=== PATIENT | female | born 1990 | race Caucasian/White ===

== ENCOUNTER 2018-01-21 17:48 | Emergency (ER) | payer OTHER ==
[~2018-01-21] VITALS: Ht 149.9 cm; Wt 54.4 kg
[2018-01-21] MEDS ORDERED: ADDERALL 20 MG20 M1 PO (17:57)
[2018-01-21] MEDS ORDERED: GABAPENTIN 100100 MG PO (17:57)
[2018-01-21] MEDS ORDERED: INDOMETHACIN 5050 MG PO (17:59)
[2018-01-21] MEDS ORDERED: NAPROSYN500 MG PO (17:59)
[2018-01-21 18:49] LABS: ABSOLUTE BASOPHILS 0.1 thou/uL (0.0-0.2); ABSOLUTE EOSINOPHILS 0.1 thou/uL (0.0-0.7); ABSOLUTE LYMPHOCYTES 2.3 thou/uL (0.8-5.3); ABSOLUTE MONOCYTES 0.8 thou/uL (0.0-1.2); ABSOLUTE NEUTROPHILS 4.1 thou/uL (1.6-8.1); BASOPHILS 0.8 %; HEMATOCRIT 42.8 % (37.0-47.0); HEMOGLOBIN 14.3 gm/dL (12.0-15.0); LYMPHOCYTES 31.8 %; MCH 30.7 pg (26.0-34.0); MCHC 33.5 g/dL (28.0-37.0); MCV 91.8 fL (80.0-100.0); MONOCYTES 10.7 %; MPV 8.9 fl. (7.2-11.1); NUCLEATED RBCS 0 /100WBC; PLATELET COUNT* 292 thou/uL (150-400); POLYS 55.7 %; RBC 4.66 mil/uL (4.20-5.00); RDW-CV 12.4 % (10.5-14.5); WBC 7.3 thou/uL (4.0-11.0)
[2018-01-21 18:53] LABS: URINE BILIRUBIN NEGATIVE (Negative); URINE BLOOD 2+ (Negative); URINE CLARITY CLEAR; URINE COLOR YELLOW; URINE GLUCOSE-RANDOM NEGATIVE (Negative); URINE KETONES TRACE (Negative); URINE LEUKOCYTES-REFLEX NEGATIVE (Negative); URINE NITRITE-REFLEX NEGATIVE (Negative); URINE PROTEIN NEGATIVE (Negative)
[2018-01-21 18:58] LABS: CALCIUM 8.7 mg/dL (8.5-10.1); CREATININE 0.7 mg/dL (0.6-1.3); POTASSIUM 3.6 mmol/L (3.5-5.1)
[2018-01-21 19:01] LABS: CALCIUM OXALATE 0-3 Few /LPF (None Seen); CASTS None Seen /LPF (None Seen); SQUAMOUS 4-10 Moderate /LPF (0-3); URINE WBC-REFLEX 0-5 Rare /HPF (0-5)
[2018-01-21 19:02] LABS: BACTERIA-REFLEX None Seen /HPF (None Seen); URINE RBC 0-2 Rare /HPF (0-2)
[2018-01-21 19:03] LABS: ALBUMIN 4.4 g/dL (3.4-5.0); TOTAL BILIRUBIN 0.4 mg/dL (<0.1-1.0); TOTAL PROTEIN 7.7 g/dL (6.4-8.2)
[2018-01-21 19:46] VITALS: BP 103/58
== END 2018-01-21 19:46 | disposition home or self-care (01) ==
LOC: M.ERS 17:48
PROVIDERS: Nurse Practitioner Family
DX: N92.0 Excessive and frequent menstruation with regular cycle (principal); M79.7 Fibromyalgia; F90.9 Attention-deficit hyperactivity disorder, unspecified type

== ENCOUNTER 2018-02-08 22:17 | Emergency (ER) | payer OTHER ==
[~2018-02-08] VITALS: Ht 149.9 cm; Wt 57.1 kg
[~2018-02-08 22:17] MED LIST: ADDERALL 20 MG20 M1 PO; GABAPENTIN 100100 MG PO; INDOMETHACIN 5050 MG PO; NAPROSYN500 MG PO
[2018-02-08 23:20] LABS: URINE BILIRUBIN NEGATIVE (Negative); URINE BLOOD NEGATIVE (Negative); URINE CLARITY CLEAR; URINE COLOR YELLOW; URINE GLUCOSE-RANDOM NEGATIVE (Negative); URINE KETONES NEGATIVE (Negative); URINE LEUKOCYTES-REFLEX NEGATIVE (Negative); URINE NITRITE-REFLEX NEGATIVE (Negative); URINE PROTEIN NEGATIVE (Negative); URINE SPECIFIC GRAVITY <= 1.005 (1.005-1.030); URINE UROBILINOGEN 0.2 E.U./dl (0.2-1.0)
[2018-02-08] MEDS ORDERED: CITRATE OF MAG296 M1 PO (23:59)
[2018-02-09 00:08] VITALS: BP 107/65
== END 2018-02-09 00:10 | disposition home or self-care (01) ==
LOC: M.ERS 22:17
PROVIDERS: Nurse Practitioner Family
DX: K59.00 Constipation, unspecified (principal); M79.7 Fibromyalgia; F90.9 Attention-deficit hyperactivity disorder, unspecified type